=== PATIENT | female | born 1975 | race American Indian/Alaskan Native ===

== ENCOUNTER 2018-10-29 11:22 | Inpatient (IN) | payer MEDICAID ==
--- NOTE | 2018-10-29 11:36 | Emergency Department Report ---
Chief Complaint: Dyspnea/Respdistress Stated Complaint: HGB LOW Time Seen by Provider: 10/29/18 11:30 - HPI History of Present Illness: This is a 43 y.o. F that presents to ER with abnormal labs. Patient seen by PCP at [facility] 10/25/2018 and received a call yesterday of low H/H. PMH Asthma, HTN, anemia, and sickle cell. She reports generalized pain. - Exam Vital Signs: Vital Signs 10/29/18 11:30 Temperature 98 F Pulse Rate 88 Respiratory 20 Rate Blood Pressure 104/58 O2 Sat by Pulse 100 Oximetry MSE screening note: Focused history and physical exam performed. Due to findings the following was ordered: Labs and ekg Main ED for further evaluation. ED Disposition for MSE Condition: Stable
[2018-10-29 12:14] LABS: Mean Corpuscular HGB Conc 30 % (30-34)
[2018-10-29 12:26] LABS: Hematocrit 18.1 % (30.3-42.9); Hemoglobin 5.5 gm/dl (10.1-14.3); Mean Corpuscular Volume 62 fl (79-97); Platelet Count 1290 K/mm3 (140-440); Red Cell Distribution Width 34.4 % (13.2-15.2)
[2018-10-29 12:29] LABS: Alanine Aminotransferase 8 units/L (7-56); Albumin 3.9 g/dL (3.9-5); BUN/Creatinine Ratio 13; Blood Urea Nitrogen 5 mg/dL (7-17); Calcium 8.6 mg/dL (8.4-10.2); Hemolysis Index 4
[2018-10-29] MEDS ORDERED: NACL 0.9% 500 ML 500 ML IV ONE (12:40)
[2018-10-29] MEDS ORDERED: K-DUR PO ONE ×2 (12:42→14:46)
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
[2018-10-29 13:02] LABS: Anisocytosis 3+; Basophils % (Manual) 0 % (0.0-1.8); Hypochromasia 3+; Poikilocytosis 1+; Total Cells Counted 100
[2018-10-29 13:03] LABS: Macrocytosis 1+; Ovalocytes 1+; Platelet Estimate Appears Increased; Tear Drop Cells Few
[2018-10-29] MEDS ORDERED: NACL 0.9% 1000 ML 1,000 ML IV ONE (13:25)
[2018-10-29 13:54] LABS: HCG Qualitative,Urine Negative (Negative)
[2018-10-29 14:01] LABS: Bacteria,Urine 1+ /HPF (Negative); Bilirubin,Urine NEG (Negative); Blood,Urine NEG (Negative); Color,Urine Yellow (Yellow); Mucus,Urine FEW /HPF; Urobilinogen,Urine < 2.0 mg/dL (<2.0)
[2018-10-29 14:01] LABS: Amphetamine Screen,Urine PRESUMPTIVE NEGATIVE; Benzodiazepines Screen,Urine PRESUMPTIVE NEGATIVE; Cannabinoid Screen,Urine PRESUMPTIVE NEGATIVE; Cocaine Screen,Urine PRESUMPTIVE NEGATIVE; Methadone Screen,Urine PRESUMPTIVE NEGATIVE; Opiate Screen,Urine PRESUMPTIVE NEGATIVE
[2018-10-29] MEDS ORDERED: NORCO 5/325 PO ONE (14:01)
--- NOTE | 2018-10-29 14:01 | XRay Report ---
PROCEDURE: XR CHEST 1V AP TECHNIQUE: Chest radiograph single view. HISTORY: hypertension COMPARISONS: None . FINDINGS: Heart: Normal. Mediastinum/Vessels: Normal. Lungs/Pleural space: Normal. Bony thorax: No acute osseous abnormality. Life support devices: None. IMPRESSION: No acute cardiopulmonary abnormality. This document is electronically signed by Cherri Zeng MD., Oct 29 2018 01:59:32 PM ET
[2018-10-29] MEDS ORDERED: NORCO 5/325 ONE (14:05)
[2018-10-29 14:40] LABS: Iron 7 ug/dL (37-170); Total Iron Binding Capacity 377 mcg/dL (250-450)
[2018-10-29 14:44] LABS: Alanine Aminotransferase 8 units/L (7-56); Albumin 3.7 g/dL (3.9-5)
[2018-10-29 14:47] LABS: Bilirubin,Direct < 0.2 mg/dL (0-0.2)
[2018-10-29 15:11] LABS: INR 1.16 (0.87-1.13)
[2018-10-29 15:12] LABS: Partial Thromboplastin Time 26.7 Sec. (24.2-36.6)
[2018-10-29] MEDS ORDERED: NACL 0.9% 500 ML 500 ML ONE (16:29)
[2018-10-29] MEDS ORDERED: DILAUDID IV PRN (17:17)
[2018-10-29] MEDS ORDERED: BENADRYL IV ONE (20:27)
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
[2018-10-29] MEDS ORDERED: TYLENOL PO PRN (20:54)
[2018-10-29] MEDS ORDERED: ZOFRAN IV PRN (20:54)
[2018-10-29] MEDS ORDERED: SODIUM CHLORIDE FLUSH SYRINGE 10 ML IV PRN (20:54)
[2018-10-29] MEDS ORDERED: D5NS 1,000 ML IV SCH (21:00)
[2018-10-29] MEDS: PERCOCET 5/325 PO PRN (22:11)
[2018-10-29] MEDS: KCL 10MEQ/100ML 10 MEQ/100 ML BAG IV SCH (23:11)
[2018-10-30] MEDS: KCL 10MEQ/100ML 10 MEQ/100 ML BAG IV SCH ×3 (00:53→04:03)
[2018-10-30] MEDS: SODIUM CHLORIDE FLUSH SYRINGE 10 ML IV SCH ×2 (00:53→12:18)
[2018-10-30 01:58] LABS: Bacteria,Urine 1+ /HPF (Negative); Bilirubin,Urine NEG (Negative); Blood,Urine NEG (Negative); Color,Urine Yellow (Yellow); Mucus,Urine FEW /HPF; Protein,Urine <15 mg/dL mg/dL (Negative)
[2018-10-30] MEDS ORDERED: BENADRYL PO ONE (02:30)
[2018-10-30 11:32] LABS: Hematocrit 23.4 % (30.3-42.9); Hemoglobin 7.2 gm/dl (10.1-14.3); Mean Corpuscular HGB Conc 31 % (30-34); Red Blood Count 3.45 M/mm3 (3.65-5.03)
[2018-10-30 11:34] LABS: Mean Corpuscular Volume 68 fl (79-97); Red Cell Distribution Width 35.3 % (13.2-15.2)
[2018-10-30 11:36] LABS: Platelet Count 1179 K/mm3 (140-440)
[2018-10-30 11:57] LABS: Alanine Aminotransferase 7 units/L (7-56); Albumin 3.5 g/dL (3.9-5); BUN/Creatinine Ratio 17; Blood Urea Nitrogen 5 mg/dL (7-17); Calcium 8.4 mg/dL (8.4-10.2); Hemolysis Index 3
[2018-10-30] MEDS: PERCOCET 5/325 PO PRN (12:18)
[2018-10-30 12:44] VITALS: BP 123/77
[2018-10-30] MEDS ORDERED: ALUM-MAG HYDROX-SIMETH 200-200-20MG/5ML PO ONE (12:45)
[2018-10-30] MEDS ORDERED: ALUM-MAG HYDROX-SIMETH 200-200-20MG/5ML PO PRN (12:45)
--- NOTE | 2018-10-30 12:48 | Progress Note ---
Hospitalist Physical - Constitutional Vitals: Temp Pulse Resp BP Pulse Ox 98.3 F 86 18 123/77 100 10/30/18 12:42 10/30/18 12:42 10/30/18 12:42 10/30/18 12:42 10/30/18 12:42 General appearance: Present: no acute distress, well-nourished Results - Labs CBC & Chem 7: 10/30/18 11:19 10/30/18 11:19 Labs: Laboratory Last Values WBC 13.2 K/mm3 (4.5-11.0) H 10/30/18 11:19 RBC 3.45 M/mm3 (3.65-5.03) L 10/30/18 11:19 Hgb 7.2 gm/dl (10.1-14.3) L 10/30/18 11:19 Hct 23.4 % (30.3-42.9) L 10/30/18 11:19 MCV 68 fl (79-97) L 10/30/18 11:19 MCH 21 pg (28-32) L 10/30/18 11:19 MCHC 31 % (30-34) 10/30/18 11:19 RDW 35.3 % (13.2-15.2) H 10/30/18 11:19 Plt Count 1179 K/mm3 (140-440) H* 10/30/18 11:19 Add Manual Diff Complete 10/29/18 12:01 Total Counted 100 10/29/18 12:01 Seg Neuts % (Manual) 73.0 % (40.0-70.0) H 10/29/18 12:01 0 % 10/29/18 12:01 18.0 % (13.4-35.0) 10/29/18 12:01 Reactive Lymphs % (Man) 0 % 10/29/18 12:01 8.0 % (0.0-7.3) H 10/29/18 12:01 1.0 % (0.0-4.3) 10/29/18 12:01 0 % (0.0-1.8) 10/29/18 12:01 0 % 10/29/18 12:01 0 % 10/29/18 12:01 0 % 10/29/18 12:01 0 % 10/29/18 12:01 Nucleated RBC % Not Reportable 10/29/18 12:01 Seg Neutrophils # Man 8.8 K/mm3 (1.8-7.7) H 10/29/18 12:01 Band Neutrophils # 0.0 K/mm3 10/29/18 12:01 2.2 K/mm3 (1.2-5.4) 10/29/18 12:01 Abs React Lymphs (Man) 0.0 K/mm3 10/29/18 12:01 1.0 K/mm3 (0.0-0.8) H 10/29/18 12:01 0.1 K/mm3 (0.0-0.4) 10/29/18 12:01 0.0 K/mm3 (0.0-0.1) 10/29/18 12:01 0.0 K/mm3 10/29/18 12:01 0.0 K/mm3 10/29/18 12:01 0.0 K/mm3 10/29/18 12:01 Blast Cells # 0.0 K/mm3 10/29/18 12:01 WBC Morphology Not Reportable 10/29/18 12:01 WBC Morphology TNR 10/29/18 12:01 Hypersegmented Neuts Not Reportable 10/29/18 12:01 Hyposegmented Neuts Not Reportable 10/29/18 12:01 Hypogranular Neuts Not Reportable 10/29/18 12:01 Not Reportable 10/29/18 12:01 Not Reportable 10/29/18 12:01 Not Reportable 10/29/18 12:01 Not Reportable 10/29/18 12:01 Not Reportable 10/29/18 12:01 Not Reportable 10/29/18 12:01 Appears increased 10/29/18 12:01 Not Reportable 10/29/18 12:01 Plt Clumps, EDTA Not Reportable 10/29/18 12:01 Not Reportable 10/29/18 12:01 Not Reportable 10/29/18 12:01 Not Reportable 10/29/18 12:01 Plt Morphology Comment Not Reportable 10/29/18 12:01 RBC Morphology Not Reportable 10/29/18 12:01 Dimorphic RBCs Not Reportable 10/29/18 12:01 Not Reportable 10/29/18 12:01 3+ 10/29/18 12:01 1+ 10/29/18 12:01 3+ 10/29/18 12:01 2+ 10/29/18 12:01 1+ 10/29/18 12:01 Not Reportable 10/29/18 12:01 Not Reportable 10/29/18 12:01 Not Reportable 10/29/18 12:01 Not Reportable 10/29/18 12:01 Few 10/29/18 12:01 1+ 10/29/18 12:01 Not Reportable 10/29/18 12:01 Not Reportable 10/29/18 12:01 Not Reportable 10/29/18 12:01 Not Reportable 10/29/18 12:01 Not Reportable 10/29/18 12:01 Not Reportable 10/29/18 12:01 1+ 10/29/18 12:01 Acanthocytes (Spur) Not Reportable 10/29/18 12:01 Rouleaux Not Reportable 10/29/18 12:01 Not Reportable 10/29/18 12:01 Not Reportable 10/29/18 12:01 Not Reportable 10/29/18 12:01 Percent Retic 2.53 % (0.78-2.58) 10/29/18 12:01 Not Reportable 10/29/18 12:01 Hem Pathologist Commnt No 10/29/18 12:01 PT 15.5 Sec. (12.2-14.9) H 10/29/18 13:50 INR 1.16 (0.87-1.13) H 10/29/18 13:50 APTT 26.7 Sec. (24.2-36.6) 10/29/18 13:50 Sodium 141 mmol/L (137-145) 10/30/18 11:19 Potassium 3.7 mmol/L (3.6-5.0) D 10/30/18 11:19 Chloride 107.6 mmol/L (98-107) H 10/30/18 11:19 Carbon Dioxide 23 mmol/L (22-30) 10/30/18 11:19 14 mmol/L 10/30/18 11:19 BUN 5 mg/dL (7-17) L 10/30/18 11:19 0.3 mg/dL (0.7-1.2) L 10/30/18 11:19 Estimated GFR > 60 ml/min 10/30/18 11:19 17 % 10/30/18 11:19 Glucose 93 mg/dL (65-100) 10/30/18 11:19 5.2 % (4-6) 10/29/18 21:18 Calcium 8.4 mg/dL (8.4-10.2) 10/30/18 11:19 Magnesium 2.00 mg/dL (1.7-2.3) 10/29/18 13:50 Iron 7 ug/dL (37-170) L 10/29/18 13:50 TIBC 377 mcg/dL (250-450) 10/29/18 13:50 1.50 mg/dL (0.1-1.2) H 10/30/18 11:19 < 0.2 mg/dL (0-0.2) 10/29/18 13:50 AST 17 units/L (5-40) 10/30/18 11:19 ALT 7 units/L (7-56) 10/30/18 11:19 48 units/L (35-129) 10/30/18 11:19 < 0.010 ng/mL (0.00-0.029) 10/29/18 13:50 7.1 g/dL (6.3-8.2) 10/30/18 11:19 3.5 g/dL (3.9-5) L 10/30/18 11:19 1.0 % 10/30/18 11:19 Vitamin B12 380.3 pg/mL (211-911) 10/29/18 13:50 > 20 ng/mL (7.3-26.0) 10/29/18 13:50 Yellow (Yellow) 10/30/18 01:00 Cloudy (Clear) 10/30/18 01:00 6.0 (5.0-7.0) 10/30/18 01:00 Ur Specific [place] 1.011 (1.003-1.030) 10/30/18 01:00 <15 mg/dl mg/dL (Negative) 10/30/18 01:00 Neg mg/dL (Negative) 10/30/18 01:00 Neg mg/dL (Negative) 10/30/18 01:00 Neg (Negative) 10/30/18 01:00 Neg (Negative) 10/30/18 01:00 Ur Reducing Substances Not Reportable 10/29/18 12:13 Neg (Negative) 10/30/18 01:00 Not Reportable 10/29/18 12:13 4.0 mg/dL (<2.0) 10/30/18 01:00 Ur Leukocyte Esterase Mod (Negative) 10/30/18 01:00 9.0 /HPF (0.0-6.0) H 10/30/18 01:00 13.0 /HPF (0.0-6.0) 10/30/18 01:00 U Epithel Cells (Auto) 41.0 /HPF (0-13.0) H 10/30/18 01:00 1+ /HPF (Negative) 10/30/18 01:00 Few /HPF 10/30/18 01:00 Urine HCG, Qual Negative (Negative) 10/29/18 12:13 Salicylates < 0.3 mg/dL (2.8-20.0) L 10/29/18 13:50 Presumptive negative 10/29/18 12:38 Presumptive negative 10/29/18 12:38 Ur Barbiturates Screen Presumptive negative 10/29/18 12:38 Ur Phencyclidine Scrn Presumptive negative 10/29/18 12:38 Ur Amphetamines Screen Presumptive negative 10/29/18 12:38 U Benzodiazepines Scrn Presumptive negative 10/29/18 12:38 Presumptive negative 10/29/18 12:38 U Marijuana (THC) Screen Presumptive negative 10/29/18 12:38 Disclamer 10/29/18 12:38 Blood Type O POSITIVE 10/29/18 13:50 Antibody Screen TNR 10/29/18 13:50 BRAD Antibody Screen Negative 10/29/18 13:50 Crossmatch See Detail 10/29/18 13:50 Active Medications - Current Medications Current Medications: Generic Name Dose Route Start Last Admin Trade Name Freq PRN Reason Stop Dose Admin Acetaminophen 650 mg 10/29/18 20:54 Tylenol PO Q4H PRN Pain MILD(1-3)/Fever >100.5/SEGAL Al Hydrox/Mg Hydrox/Simethicone 30 ml 10/30/18 12:45 Alum-Mag Hydrox-Simeth 847-528-82wr/5ml PO Q4H PRN Indigestion Al Hydrox/Mg Hydrox/Simethicone 30 ml 10/30/18 12:45 Alum-Mag Hydrox-Simeth 246-342-77qw/5ml PO 10/30/18 12:46 ONCE ONE Hydromorphone HCl 1 mg 10/29/18 17:17 10/29/18 18:24 Dilaudid IV 1 mg Q3H PRN Administration Pain , Severe (7-10) Ondansetron HCl 4 mg 10/29/18 20:54 Zofran IV Q8H PRN Nausea And Vomiting Oxycodone/Acetaminophen 1 tab 10/29/18 20:55 10/30/18 12:18 Percocet 5/325 PO 1 tab Q6H PRN Administration Pain, Moderate (4-6) Sodium Chloride 10 ml 10/29/18 22:00 10/30/18 12:18 Sodium Chloride Flush Syringe 10 Ml IV 10 ml BID SUZANNE Administration Sodium Chloride 10 ml 10/29/18 20:54 Sodium Chloride Flush Syringe 10 Ml IV PRN PRN LINE FLUSH
[2018-10-30 14:30] LABS: Anisocytosis 3+; Hypochromasia 2+; Total Cells Counted 100
[2018-10-30 14:31] LABS: Ovalocytes Few; Poikilocytosis 1+; Tear Drop Cells Few
[2018-10-30 14:32] LABS: Platelet Estimate Consistent w Auto
--- NOTE | 2018-10-30 16:20 | Discharge Summary ---
Providers - Providers Date of Admission: 10/29/18 13:27 Date of discharge: 10/30/18 Attending physician: LILY OH 10/29/18 20:55 Consult to Physician [CONS] Routine Comment: Consulting Provider: WAI ROY Physician Instructions: Reason For Exam: thrombocytosis Primary care physician: LIVE BEST Hospitalization Reason for admission: generalized weakness, symptomatic anemia Condition: Stable Pertinent studies: chest x-ray; no acute abnormality noted; Hospital course: 43-year-old female patient with significant past medical history of sickle cell anemia and fibroids causing menorrhagia was admitted through emergency room with generalized weakness symptomatic anemia with hemoglobin of 5.5, patient also noted to have severe hypokalemia, admitted to the hospital received 2 units of PRBC with significant improvement of hemoglobin Patient's potassium was corrected to normal range, patient also has reactive thrombocytosis Mild improvement back to baseline,Evaluated by hematology oncologist, medications optimized, advise follow outpatient for further evaluation and management and cleared for discharge, Patient strongly advised to see private ARMORED CABLE MACHINE OPERATOR for further evaluation of her menorrhagia causing severe anemia Today patient is comfortable, no new complaints vital signs stable Physical examination is unremarkable, Hemodynamically and clinically stable at discharge Discharge diagnosis; --Symptomatic anemia; status post blood transfusion H&H significantly improved --Menorrhagia secondary to fibroid uterus; supportive care Advised to follow ARMORED CABLE MACHINE OPERATOR for further evaluation upon discharge --History of sickle cell anemia; symptomatic management, follow hematology --Reactive thrombocytosis; mild improvement, hematology evaluated the patient Outpatient workup upon discharge --Hypertension; moderate control, continue current antihypertensives The patient is hemodynamically and clinically stable for discharge Cleared by hematology oncologist for discharge and follow up in the office for scheduled Disposition: DC-01 TO HOME OR SELFCARE Time spent for discharge: 32 min Core Measure Documentation - Palliative Care Palliative Care/ Comfort Measures: Not Applicable - Core Measures Any of the following diagnoses?: none Exam - Constitutional Vitals: Temp Pulse Resp BP Pulse Ox 98.3 F 86 18 123/77 98 10/30/18 12:42 10/30/18 12:42 10/30/18 12:42 10/30/18 12:42 10/30/18 15:19 General appearance: Present: no acute distress, well-nourished - EENT Eyes: Present: PERRL, EOM intact - Neck Neck: Present: supple, normal ROM - Respiratory Respiratory effort: normal Respiratory: bilateral: diminished, negative: rales, rhonchi, wheezing - Cardiovascular Rhythm: regular Heart Sounds: Present: S1 & S2 - Extremities Extremities: no ischemia, No edema - Abdominal General gastrointestinal: Present: soft, non-tender, non-distended, normal bowel sounds - Integumentary Integumentary: Present: clear, warm - Musculoskeletal Musculoskeletal: strength equal bilaterally, generalized weakness - Psychiatric Psychiatric: appropriate mood/affect, cooperative - Neurologic Neurologic: CNII-XII intact, moves all extremities Plan Activity: advance as tolerated Diet: regular Additional Instructions: Advised to see private ARMORED CABLE MACHINE OPERATOR in 1 week for further evaln of menorrhagia. and anemia. Follow up with: LIVE BEST NP-C [Primary Care Provider] - 7 Days WAI ROY MD [Staff Physician] - 7 Days STEPHANIE DAY MD [Staff Physician] - 7 Days Prescriptions: Ferrous Sulfate [Feosol 325 MG tab] 325 mg PO BID #60 tablet
--- NOTE | 2018-10-30 18:03 | Event Note ---
Date: 10/30/18 [id number]
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
== END 2018-10-30 19:37 | disposition home or self-care (01) | DRG 761 ==
LOC: ED 11:22 → 4A 13:27
PROVIDERS: ADMIT Internal Medicine; ATTEND Internal Medicine
PROC: 30233N1 Transfusion of Nonautologous Red Blood Cells into Peripheral Vein, Percutaneous Approach (ICD-10-PCS; principal; 2018-10-29)
DX: D25.9 Leiomyoma of uterus, unspecified (principal); D47.3 Essential (hemorrhagic) thrombocythemia; D57.1 Sickle-cell disease without crisis; D50.9 Iron deficiency anemia, unspecified; N93.8 Other specified abnormal uterine and vaginal bleeding; E87.6 Hypokalemia; J45.909 Unspecified asthma, uncomplicated; Z88.8 Allergy status to other drugs, medicaments and biological substances; Z88.6 Allergy status to analgesic agent
CPT/HCPCS: 36415; 71045; 80053; 80076; 80307; 80320; 81001; 81025; 82607; 82747; 83036; 83550; 83735; 84484; 85007; 85025; 85045; 85610; 85660; 85730; 86850; 86900; 86901; 86920; 93005; 93010; G0378; G0480; J1170; J1200; J3480; J7030; J7040; J7042; P9016

== ENCOUNTER 2018-11-26 09:16 | Inpatient (IN) | payer MEDICAID ==
[2018-11-26 11:18] LABS: BUN/Creatinine Ratio 15; Blood Urea Nitrogen 6 mg/dL (7-17); Hemolysis Index 1
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
[2018-11-26 12:27] LABS: Hematocrit 22.9 % (30.3-42.9); Mean Corpuscular HGB Conc 30 % (30-34); Mean Corpuscular Volume 65 fl (79-97); Red Blood Count 3.51 M/mm3 (3.65-5.03); Red Cell Distribution Width 36.6 % (13.2-15.2)
[2018-11-26] MEDS ORDERED: K-DUR PO ONE ×2 (12:27→13:00)
[2018-11-26] MEDS ORDERED: NACL 0.9% 1000 ML 1,000 ML IV ONE (12:27)
[2018-11-26 12:28] LABS: Basophils # (Auto) 0.1 K/mm3 (0.0-0.1); Basophils % (Auto) 0.5 % (0.0-1.8); Eosinophils # (Auto) 0.2 K/mm3 (0.0-0.4); Eosinophils % (Auto) 1.4 % (0.0-4.3); Lymphocytes % (Auto) 36.4 % (13.4-35.0); Mean Platelet Volume 8.4 fl (6-12); Monocytes % (Auto) 8.8 % (0.0-7.3); Platelet Count 1524 K/mm3 (140-440)
[2018-11-26] MEDS ORDERED: PROTONIX IV ONE ×2 (12:29→13:00)
[2018-11-26] MEDS ORDERED: NACL 0.9% 1000 ML ONE (13:00)
[2018-11-26] MEDS ORDERED: NACL 0.9% 500 ML 500 ML IV ONE ×2 (13:03→16:21)
[2018-11-26 13:24] LABS: INR 1.1 (0.87-1.13)
[2018-11-26 13:25] LABS: Partial Thromboplastin Time 32.5 Sec. (24.2-36.6)
[2018-11-26 13:36] LABS: Alanine Aminotransferase 7 units/L (7-56); Albumin 4.1 g/dL (3.9-5)
[2018-11-26 14:01] LABS: Bilirubin,Direct < 0.2 mg/dL (0-0.2)
[2018-11-26] MEDS ORDERED: BENADRYL IV PRN (14:55)
[2018-11-26] MEDS: DILAUDID IV PRN ×3 (15:18→22:25)
[2018-11-26] MEDS: D5NS 0.2% 1,000 ML IV SCH (15:19)
--- NOTE | 2018-11-26 16:14 | History and Physical Report ---
History of Present Illness Date of examination: 11/26/18 Date of admission: 11/26/18 13:48 Chief complaint: SCD/pain crisis., generalized fatigue/weakness. History of present illness: Patient presented to the ER with CC of diffuse joint pain, labs revealed hgb of 7.0, PLT of 1.5million. She is admitted for sxs management, and control. She will be transfused, and hydrated, pain control, and w/up Thrombocytosis. Past History Past Medical History: No medical history Past Surgical History: No surgical history Social history: no significant social history, lives with family Family history: no significant family history Medications and Allergies Allergies Allergy/AdvReac Type Severity Reaction Status Date / Time ibuprofen [From Motrin] Allergy Rash Verified 05/01/18 22:16 steriods Allergy Unknown Uncoded 05/01/18 22:16 Home Medications Medication Instructions Recorded Confirmed Last Taken Type Gabapentin [Neurontin] 300 mg PO Q8HR #90 capsule 05/02/18 Unknown Rx HYDROcodone/APAP 5-325 [Kane 1 each PO Q6HR PRN #20 tablet 05/02/18 Unknown Rx 5-325 mg TAB] Ferrous Sulfate [Feosol 325 MG tab] 325 mg PO BID #60 tablet 10/30/18 Unknown Rx Active Meds: Active Medications Aspirin (Aspirin) 325 mg PO QDAY SUZANNE Diphenhydramine HCl (Benadryl) 25 mg IV Q6H PRN PRN Reason: Itching Last Admin: 11/26/18 15:18 Dose: 25 mg Documented by: Gabapentin (Neurontin) 300 mg PO Q8HR SUZANNE Hydromorphone HCl (Dilaudid) 2 mg IV Q3H PRN PRN Reason: Pain , Severe (7-10) Last Admin: 11/26/18 15:18 Dose: 2 mg Documented by: Dextrose/Sodium Chloride (D5ns 0.2%) 1,000 mls @ 175 mls/hr IV DIRECT SUZANNE Last Admin: 11/26/18 15:19 Dose: 175 mls/hr Documented by: Oxycodone/Acetaminophen (Percocet 5/325) 2 tab PO Q6H PRN PRN Reason: Pain, Moderate (4-6) Review of Systems Constitutional: fatigue, weakness, chronic pain Breasts: deferred Exam - Constitutional Vitals: Temp Pulse Resp BP Pulse Ox 98.1 F 89 18 128/80 100 11/26/18 09:19 11/26/18 09:19 11/26/18 12:30 11/26/18 09:19 11/26/18 09:19 General appearance: Present: mild distress, well-nourished - EENT Eyes: Present: PERRL ENT: hearing intact, clear oral mucosa - Neck Neck: Present: supple, normal ROM - Respiratory Respiratory effort: normal Respiratory: bilateral: CTA - Cardiovascular Heart Sounds: Present: S1 & S2. Absent: rub, click - Extremities Extremities: pulses symmetrical, No edema Peripheral Pulses: within normal limits - Abdominal General gastrointestinal: Present: soft, non-tender, non-distended, normal bowel sounds Female genitourinary: Present: deferred - Rectal Rectal Exam: deferred - Integumentary Integumentary: Present: clear, warm, dry - Musculoskeletal Musculoskeletal: gait normal, strength equal bilaterally - Psychiatric Psychiatric: appropriate mood/affect, intact judgment & insight - Neurologic Neurologic: CNII-XII intact, moves all extremities Results - Labs CBC & Chem 7: 11/26/18 10:34 11/26/18 10:34 Labs: Abnormal lab results 11/26/18 11/26/18 11/26/18 Range/Units 10:34 10:34 12:49 RBC 3.51 L (3.65-5.03) M/mm3 Hgb 7.0 L (10.1-14.3) gm/dl Hct 22.9 L (30.3-42.9) % MCV 65 L (79-97) fl MCH 20 L (28-32) pg RDW 36.6 H (13.2-15.2) % Plt Count 1524 H* (140-440) K/mm3 Lymph % (Auto) 36.4 H (13.4-35.0) % Curry % (Auto) 8.8 H (0.0-7.3) % Curry # 1.0 H (0.0-0.8) K/mm3 Potassium 3.2 L (3.6-5.0) mmol/L BUN 6 L (7-17) mg/dL Creatinine 0.4 L (0.7-1.2) mg/dL Total Bilirubin 1.30 H (0.1-1.2) mg/dL Total Protein 8.5 H (6.3-8.2) g/dL Crossmatch 11/26/18 Range/Units 12:49 RBC (3.65-5.03) M/mm3 Hgb (10.1-14.3) gm/dl Hct (30.3-42.9) % MCV (79-97) fl MCH (28-32) pg RDW (13.2-15.2) % Plt Count (140-440) K/mm3 Lymph % (Auto) (13.4-35.0) % Curry % (Auto) (0.0-7.3) % Curry # (0.0-0.8) K/mm3 Potassium (3.6-5.0) mmol/L BUN (7-17) mg/dL Creatinine (0.7-1.2) mg/dL Total Bilirubin (0.1-1.2) mg/dL Total Protein (6.3-8.2) g/dL Crossmatch See Detail Assessment and Plan - Patient Problems (1) Symptomatic anemia Current Visit: Yes Status: Acute Plan to address problem: replacement transfusion (2) Sickle cell anemia Current Visit: Yes Status: Chronic Qualifiers: Sickle-cell associated disorders: without crisis Qualified Code(s): D57.1 - Sickle-cell disease without crisis (3) Thrombocytosis Current Visit: Yes Status: Acute Plan to address problem: See w/up labs. (4) Dehydration Current Visit: Yes Status: Acute Plan to address problem: Hydration. (5) Sickle cell pain crisis Current Visit: Yes Status: Acute Plan to address problem: Pain control.
[2018-11-26 16:27] LABS: HCG Qualitative,Urine Negative (Negative)
[2018-11-26 16:32] LABS: Bacteria,Urine 1+ /HPF (Negative); Bilirubin,Urine NEG (Negative); Blood,Urine NEG (Negative); Color,Urine Straw (Yellow); Protein,Urine <15 mg/dL mg/dL (Negative); RBC,Urine < 1.0 /HPF (0.0-6.0); Urobilinogen,Urine < 2.0 mg/dL (<2.0)
--- NOTE | 2018-11-26 17:43 | XRay Report ---
PROCEDURE: XR CHEST 1V AP TECHNIQUE: Chest radiograph single view. HISTORY: FABRICIO COMPARISONS: 10/29/2018 . FINDINGS: Heart: Normal. Mediastinum/Vessels: Normal. Lungs/Pleural space: No infiltrate, effusion, or pneumothorax. Bony thorax: No acute osseous abnormality. Life support devices: None. IMPRESSION: No radiographic evidence of acute cardiopulmonary abnormality. This document is electronically signed by Kelli Whiting MD., November 26 2018 05:41:50 PM ET
[2018-11-26] MEDS: BENADRYL IV PRN ×2 (19:17→22:24)
[2018-11-26] MEDS: NEURONTIN PO SCH (22:32)
[2018-11-27] MEDS: PERCOCET 5/325 PO PRN ×3 (01:33→18:15)
[2018-11-27 05:24] LABS: Mean Corpuscular HGB Conc 31 % (30-34); Mean Corpuscular Volume 71 fl (79-97); Red Blood Count 3.66 M/mm3 (3.65-5.03)
[2018-11-27 05:26] LABS: Red Cell Distribution Width 37.5 % (13.2-15.2)
[2018-11-27 05:29] LABS: Platelet Count 1233 K/mm3 (140-440)
[2018-11-27 05:44] LABS: BUN/Creatinine Ratio 20; Blood Urea Nitrogen 6 mg/dL (7-17); Calcium 8.3 mg/dL (8.4-10.2); Hemolysis Index 0
[2018-11-27 05:46] LABS: Iron 21 ug/dL (37-170); Total Iron Binding Capacity 368 mcg/dL (250-450)
[2018-11-27 06:43] LABS: Total Cells Counted 100
[2018-11-27 06:45] LABS: Anisocytosis 2+; Hypochromasia 1+
[2018-11-27 06:46] LABS: Dimorphic RBC Yes
[2018-11-27] MEDS: BENADRYL IV PRN ×3 (08:59→23:13)
[2018-11-27] MEDS ORDERED: ZOFRAN IV SCH (09:00)
[2018-11-27] MEDS: D5NS 0.2% 1,000 ML IV SCH (09:10)
[2018-11-27] MEDS: ZOFRAN IV PRN ×2 (09:15→19:09)
[2018-11-27] MEDS: DILAUDID IV PRN ×3 (09:15→23:04)
[2018-11-27] MEDS: ASPIRIN PO SCH (12:55)
[2018-11-27] MEDS: HYDREA PO SCH (12:56)
[2018-11-27] MEDS: NEURONTIN PO SCH ×2 (15:12→23:08)
[2018-11-27] MEDS: LEVAQUIN PO SCH (15:28)
[2018-11-27] MEDS ORDERED: NACL 0.9% 500 ML IV SCH (15:36)
--- NOTE | 2018-11-27 20:35 | Progress Note ---
Assessment and Plan - Patient Problems (1) Symptomatic anemia Current Visit: Yes Status: Acute Plan to address problem: replacement transfusion completed. (2) Sickle cell anemia Current Visit: Yes Status: Chronic Qualifiers: Sickle-cell associated disorders: without crisis Qualified Code(s): D57.1 - Sickle-cell disease without crisis (3) Thrombocytosis Current Visit: Yes Status: Acute Plan to address problem: See w/up labs. See notes. (4) Dehydration Current Visit: Yes Status: Acute Plan to address problem: Hydration. (5) Sickle cell pain crisis Current Visit: Yes Status: Acute Plan to address problem: Pain control. Subjective Date of service: 11/27/18 Principal diagnosis: SCD/Pain crisis. Interval history: patient seen /examined, resting in bed, labs reviewed, PLT, slightly down to 1.2 million, from 1.5 mil.She is complaining of vaginal irritation, UA with +1 bacteria. she is also complaining of B/L knee pain.Will do bilateral knee xray.will give some oral Abx.Pain is rated at 7/10, with current pain management. Objective - Constitutional Vitals: Vital Signs - 12hr 11/27/18 11/27/18 11/27/18 11:20 15:25 16:17 Temperature 97.5 F L 98.4 F 98.4 F Pulse Rate 77 89 89 Respiratory 19 18 18 Rate Blood Pressure 134/77 130/85 130/85 O2 Sat by Pulse 98 97 97 Oximetry 11/27/18 11/27/18 11/27/18 16:32 17:02 17:32 Temperature 98.4 F 98.3 F 98.5 F Pulse Rate 79 75 79 Respiratory 16 16 20 Rate Blood Pressure 112/71 124/81 124/83 O2 Sat by Pulse 96 96 97 Oximetry 11/27/18 11/27/18 11/27/18 17:40 18:02 18:32 Temperature 98.5 F 98.3 F 98.5 F Pulse Rate 80 80 83 Respiratory 19 18 18 Rate Blood Pressure 124/83 127/77 133/46 O2 Sat by Pulse 100 80 L 98 Oximetry 11/27/18 19:00 Temperature 98.6 F Pulse Rate 80 Respiratory 18 Rate Blood Pressure 115/72 O2 Sat by Pulse 98 Oximetry General appearance: Present: mild distress - Breasts Breasts: deferred - Gastrointestinal Rectal Exam: deferred - Genitourinary Female genitourinary: deferred - Labs CBC & Chem 7: 11/27/18 04:50 11/27/18 04:50 Labs: Abnormal lab results 11/26/18 11/27/18 11/27/18 Range/Units 12:49 04:50 04:50 WBC (4.5-11.0) K/mm3 Hgb (10.1-14.3) gm/dl Hct (30.3-42.9) % MCV (79-97) fl MCH (28-32) pg RDW (13.2-15.2) % Plt Count (140-440) K/mm3 Monocytes % (Manual) (0.0-7.3) % Basophils % (Manual) (0.0-1.8) % Monocytes # (Manual) (0.0-0.8) K/mm3 BUN (7-17) mg/dL Creatinine (0.7-1.2) mg/dL Glucose (65-100) mg/dL Calcium (8.4-10.2) mg/dL Iron 21 L (37-170) ug/dL Ferritin 3.3 L (13.0-400.0) ng/mL Lactate Dehydrogenase (91-180) units/L Crossmatch See Detail 11/27/18 11/27/18 Range/Units 04:50 04:50 WBC 11.1 H (4.5-11.0) K/mm3 Hgb 8.0 L (10.1-14.3) gm/dl Hct 26.0 L (30.3-42.9) % MCV 71 L (79-97) fl MCH 22 L (28-32) pg RDW 37.5 H (13.2-15.2) % Plt Count 1233 H* (140-440) K/mm3 Monocytes % (Manual) 11.0 H (0.0-7.3) % Basophils % (Manual) 3.0 H (0.0-1.8) % Monocytes # (Manual) 1.2 H (0.0-0.8) K/mm3 BUN 6 L (7-17) mg/dL Creatinine 0.3 L (0.7-1.2) mg/dL Glucose 105 H (65-100) mg/dL Calcium 8.3 L (8.4-10.2) mg/dL Iron (37-170) ug/dL Ferritin (13.0-400.0) ng/mL Lactate Dehydrogenase 192 H (91-180) units/L Crossmatch Medications & Allergies - Medications Allergies/Adverse Reactions: Allergies ibuprofen [From Motrin] Allergy (Verified 05/01/18 22:16) Rash steriods Allergy (Uncoded 05/01/18 22:16) Unknown Home Medications: Home Medications Medication Instructions Recorded Confirmed Last Taken Type Folic Acid 5 mg PO BID 11/26/18 11/26/18 11/26/18 History Hydroxyurea 1 cap PO BID 11/26/18 11/26/18 11/25/18 History Percocet 10/325 mg 10 mg PO Q6H PRN 11/26/18 11/26/18 11/24/18 History Active Medications: Generic Name Dose Route Start Last Admin Trade Name Freq PRN Reason Stop Dose Admin Aspirin 325 mg 11/27/18 10:00 11/27/18 12:55 Aspirin PO 325 mg QDAY SUZANNE Administration Diphenhydramine HCl 25 mg 11/27/18 11:00 11/27/18 15:12 Benadryl IV 25 mg Q6H PRN Administration Itching Gabapentin 300 mg 11/26/18 22:00 11/27/18 15:12 Neurontin PO 300 mg Q8HR SUZANNE Administration Hydromorphone HCl 2 mg 11/26/18 14:53 11/27/18 15:12 Dilaudid IV 2 mg Q3H PRN Administration Pain , Severe (7-10) Hydroxyurea 1,000 mg 11/27/18 10:00 11/27/18 12:56 Hydrea PO 1,000 mg QDAY SUZANNE Administration Dextrose/Sodium Chloride 1,000 mls @ 250 mls/hr 11/26/18 15:00 11/27/18 09:10 D5ns 0.2% IV 175 mls/hr DIRECT SUZANNE Administration Levofloxacin 500 mg 11/27/18 15:00 11/27/18 15:28 Levaquin PO 500 mg Q24HR SUZANNE Administration Ondansetron HCl 4 mg 11/27/18 09:04 11/27/18 19:09 Zofran IV 4 mg Q8H PRN Administration Nausea Oxycodone/Acetaminophen 2 tab 11/26/18 15:56 11/27/18 18:15 Percocet 5/325 PO 2 tab Q6H PRN Administration Pain, Moderate (4-6) Sodium Chloride 500 ml 11/27/18 15:36 11/27/18 15:55 Nacl 0.9% 500 Ml IV 500 ml DIRECT SUZANNE Administration
[2018-11-28] MEDS: D5NS 0.2% 1,000 ML IV SCH ×3 (01:57→17:46)
[2018-11-28] MEDS: NEURONTIN PO SCH ×4 (05:12→22:05)
[2018-11-28] MEDS: BENADRYL IV PRN ×3 (05:12→21:51)
[2018-11-28] MEDS: DILAUDID IV PRN ×3 (05:14→21:50)
[2018-11-28] MEDS: HYDREA PO SCH (09:51)
[2018-11-28] MEDS: LEVAQUIN PO SCH (09:51)
[2018-11-28] MEDS: ASPIRIN PO SCH (09:51)
[2018-11-28] MEDS: PERCOCET 5/325 PO PRN ×2 (09:52→17:43)
[2018-11-28 10:06] LABS: Hematocrit 30.3 % (30.3-42.9); Hemoglobin 9.6 gm/dl (10.1-14.3); Mean Corpuscular HGB Conc 32 % (30-34); Mean Corpuscular Volume 73 fl (79-97); Red Blood Count 4.15 M/mm3 (3.65-5.03)
[2018-11-28 10:25] LABS: Red Cell Distribution Width 37.6 % (13.2-15.2)
[2018-11-28 10:26] LABS: Platelet Count 1070 K/mm3 (140-440)
[2018-11-28 10:52] LABS: BUN/Creatinine Ratio 18; Blood Urea Nitrogen 7 mg/dL (7-17); Calcium 8.8 mg/dL (8.4-10.2); Hemolysis Index 11
[2018-11-28 11:04] LABS: Anisocytosis 3+; Basophils % (Manual) 0 % (0.0-1.8); Dimorphic RBC Yes; Hypochromasia 1+; Total Cells Counted 100
[2018-11-28 11:05] LABS: Burr Cells Few; Platelet Estimate Consistent w Auto
[2018-11-28] MEDS: ZOFRAN IV PRN (11:27)
[2018-11-28] MEDS ORDERED: TYLENOL PO PRN (11:54)
--- NOTE | 2018-11-28 14:51 | Cat Scan Report ---
CT HEAD WITHOUT CONTRAST: HISTORY: Headache, dizziness. TECHNIQUE: Sequential 2.5mm CT images. COMPARISON: none. FINDINGS: Cerebral Parenchyma: Within normal limits. Cerebellum: Within normal limits. Brainstem: Within normal limits. Ventricles: Normal. Sella: Normal. Extra-axial spaces: Normal. Basal Cisterns: Normal. Intracranial Hemorrhage: None. Midline Shift: None. Calvarium: Normal. Sinuses: Normal. Mastoid Air Cells: Normal. Visualized Orbits: Normal. IMPRESSION: Cranial CT scan within normal limits.
[2018-11-28] MEDS: ROCEPHIN/NS 1 GM/50 ML 1 GM/50 ML BAG IV SCH (15:09)
--- NOTE | 2018-11-28 19:31 | Progress Note ---
Assessment and Plan - Patient Problems (1) Symptomatic anemia Current Visit: Yes Status: Acute Plan to address problem: replacement transfusion completed. post transfusion. (2) Sickle cell anemia Current Visit: Yes Status: Chronic Qualifiers: Sickle-cell associated disorders: without crisis Qualified Code(s): D57.1 - Sickle-cell disease without crisis (3) Thrombocytosis Current Visit: Yes Status: Acute Plan to address problem: See w/up labs. See notes. (4) Dehydration Current Visit: Yes Status: Acute Plan to address problem: Hydration. (5) Sickle cell pain crisis Current Visit: Yes Status: Acute Plan to address problem: Pain control. Subjective Date of service: 11/28/18 Principal diagnosis: SCD/Pain crisis. Interval history: patient seen /examined, resting in bed, labs reviewed, PLT, slightly down to 1.2 million, from 1.5 mil.She is complaining of vaginal irritation, UA with +1 bacteria. she is also complaining of B/L knee pain.Will do bilateral knee xray.will give some oral Abx.Pain is rated at 7/10, with current pain managemen t. Patient seen/examined, resting in bed, had some SEGAL earlier, CT of the brain done , awaiting results.She will continue IV abx, pain control, and if sxs , better tomorrow, will plan on D/C. Objective - Constitutional Vitals: Vital Signs - 12hr 11/28/18 11/28/18 11/28/18 09:54 11:37 12:53 Temperature 99.4 F 98.1 F Pulse Rate 90 81 85 Respiratory 18 19 Rate Blood Pressure 111/59 106/69 Blood Pressure 132/70 [Right] O2 Sat by Pulse 100 97 97 Oximetry 11/28/18 17:02 Temperature 98.2 F Pulse Rate 77 Respiratory 19 Rate Blood Pressure 143/82 Blood Pressure [Right] O2 Sat by Pulse 95 Oximetry General appearance: Present: mild distress, well-nourished - EENT Eyes: PERRL, EOM intact ENT: hearing intact, clear oral mucosa Ears: bilateral: normal - Neck Neck: supple, normal ROM - Respiratory Respiratory effort: normal Respiratory: bilateral: CTA - Breasts Breasts: deferred - Cardiovascular Rhythm: regular Heart Sounds: Present: S1 & S2. Absent: gallop, rub Extremities: pulses intact, No edema, normal color, Full ROM - Gastrointestinal General gastrointestinal: Present: soft, non-tender, non-distended, normal bowel sounds Rectal Exam: deferred - Genitourinary Female genitourinary: deferred - Integumentary Integumentary: clear, warm, dry - Musculoskeletal Musculoskeletal: 1, strength equal bilaterally - Neurologic Neurologic: moves all extremities - Psychiatric Psychiatric: memory intact, appropriate mood/affect, intact judgment & insight - Labs CBC & Chem 7: 11/28/18 09:24 11/28/18 09:24 Labs: Abnormal lab results 11/28/18 11/28/18 Range/Units 09:24 09:24 WBC 12.5 H (4.5-11.0) K/mm3 Hgb 9.6 L (10.1-14.3) gm/dl MCV 73 L (79-97) fl MCH 23 L (28-32) pg RDW 37.6 H (13.2-15.2) % Plt Count 1070 H* (140-440) K/mm3 Seg Neuts % (Manual) 81.0 H (40.0-70.0) % Lymphocytes % (Manual) 11.0 L (13.4-35.0) % Seg Neutrophils # Man 10.1 H (1.8-7.7) K/mm3 Eosinophils # (Manual) 0.5 H (0.0-0.4) K/mm3 Carbon Dioxide 18 L (22-30) mmol/L Creatinine 0.4 L (0.7-1.2) mg/dL Medications & Allergies - Medications Allergies/Adverse Reactions: Allergies ibuprofen [From Motrin] Allergy (Verified 05/01/18 22:16) Rash steriods Allergy (Uncoded 05/01/18 22:16) Unknown Home Medications: Home Medications Medication Instructions Recorded Confirmed Last Taken Type Folic Acid 5 mg PO BID 11/26/18 11/26/18 11/26/18 History Hydroxyurea 1 cap PO BID 11/26/18 11/26/18 11/25/18 History Percocet 10/325 mg 10 mg PO Q6H PRN 11/26/18 11/26/18 11/24/18 History Active Medications: Generic Name Dose Route Start Last Admin Trade Name Freq PRN Reason Stop Dose Admin Acetaminophen 650 mg 11/28/18 11:54 Tylenol PO Q6H PRN Pain, Mild (1-3) Aspirin 325 mg 11/27/18 10:00 11/28/18 09:51 Aspirin PO 325 mg QDAY SUZANNE Administration Diphenhydramine HCl 25 mg 11/27/18 11:00 11/28/18 15:10 Benadryl IV 25 mg Q6H PRN Administration Itching Gabapentin 300 mg 11/26/18 22:00 11/28/18 15:09 Neurontin PO 300 mg Q8HR SUZANNE Administration Hydromorphone HCl 2 mg 11/26/18 14:53 11/28/18 15:10 Dilaudid IV 2 mg Q3H PRN Administration Pain , Severe (7-10) Hydroxyurea 1,000 mg 11/27/18 10:00 11/28/18 09:51 Hydrea PO 1,000 mg QDAY SUZANNE Administration Dextrose/Sodium Chloride 1,000 mls @ 250 mls/hr 11/26/18 15:00 11/28/18 17:46 D5ns 0.2% IV 175 mls/hr DIRECT SUZANNE Administration Ceftriaxone Sodium 1 gm in 50 mls @ 100 mls/hr 11/28/18 14:00 11/28/18 15:09 Rocephin/Ns 1 Gm/50 Ml IV 100 mls/hr Q24HR SUZANNE Administration Protocol Levofloxacin 500 mg 11/27/18 15:00 11/28/18 09:51 Levaquin PO 500 mg Q24HR SUZANNE Administration Ondansetron HCl 4 mg 11/27/18 09:04 11/28/18 11:27 Zofran IV 4 mg Q8H PRN Administration Nausea Oxycodone/Acetaminophen 2 tab 11/26/18 15:56 11/28/18 17:43 Percocet 5/325 PO 2 tab Q6H PRN Administration Pain, Moderate (4-6) Sodium Chloride 500 ml 11/27/18 15:36 11/27/18 15:55 Nacl 0.9% 500 Ml IV 500 ml DIRECT SUZANNE Administration
--- NOTE | 2018-11-28 21:42 | XRay Report ---
PROCEDURE: XR KNEE BILAT 1-2V TECHNIQUE: Bilateral knees 4 views HISTORY: Pain COMPARISONS: FINDINGS: Joint spaces are within normal limits. No acute fracture identified. No dislocation seen. Toe demonst rates normal positioning. No evidence for joint effusion. IMPRESSION: Negative bilateral knee series. This document is electronically signed by Jose Hyman MD., November 28 2018 09:40:07 PM ET
[2018-11-29] MEDS: PERCOCET 5/325 PO PRN ×3 (00:39→18:00)
[2018-11-29] MEDS: DILAUDID IV PRN ×6 (03:01→20:36)
[2018-11-29] MEDS: D5NS 0.2% 1,000 ML IV SCH ×4 (03:02→16:22)
[2018-11-29] MEDS: BENADRYL IV PRN ×4 (04:49→18:01)
[2018-11-29] MEDS: NEURONTIN PO SCH ×3 (06:09→22:16)
[2018-11-29] MEDS: ZOFRAN IV PRN ×2 (07:50→17:21)
[2018-11-29] MEDS: ROCEPHIN/NS 1 GM/50 ML 1 GM/50 ML BAG IV SCH (09:47)
[2018-11-29] MEDS: ASPIRIN PO SCH (09:50)
[2018-11-29] MEDS: HYDREA PO SCH (09:52)
[2018-11-29 13:45] VITALS: BP 101/62
--- NOTE | 2018-11-29 21:50 | Discharge Summary ---
Providers - Providers Date of Admission: 11/26/18 13:48 Date of discharge: 11/29/18 Attending physician: OSCAR DORSEY [facility] Reason for admission: SCD/pain crisis Condition: Stable Hospital course: Patient presented to the ER ,with CC of diffuse joint pain, she was admitted for sxs management, and control. she had blood replacement, and did fairly well ,henceforth. She complained, of vaginal irritation, and was treated , she also complained of intractible SEGAL, Ct of the brain, and b/l knee xry were both NL. patient is seen, resting in bed, labs, reviewed, plt had dropped down from 1.5mil to about 1mil, on hydrea. She is insisting on going home. NAD .SEGAL has subsided , as per patient. She is instructed to see me in the office in 2-5 days, or go to the ER if any other problems. She will continue on hydrea, and low dose ASA. Disposition: TO HOME OR SELFCARE - Discharge Diagnoses (1) Symptomatic anemia Status: Resolved (2) Sickle cell anemia Status: Resolved Qualifiers: Sickle-cell associated disorders: without crisis Qualified Code(s): D57.1 - Sickle-cell disease without crisis (3) Thrombocytosis Status: Acute (4) Dehydration Status: Resolved (5) Sickle cell pain crisis Status: Resolved Core Measure Documentation - Palliative Care Palliative Care/ Comfort Measures: Not Applicable - Core Measures Any of the following diagnoses?: none Exam - Constitutional Vitals: Temp Pulse Resp BP Pulse Ox 98.5 F 70 20 101/62 97 11/29/18 11:24 11/29/18 11:24 11/29/18 11:24 11/29/18 11:24 11/29/18 11:24 General appearance: Present: no acute distress, well-nourished - EENT Eyes: Present: PERRL ENT: hearing intact, clear oral mucosa - Neck Neck: Present: supple, normal ROM - Respiratory Respiratory effort: normal Respiratory: bilateral: CTA - Cardiovascular Heart Sounds: Present: S1 & S2. Absent: rub, click - Extremities Extremities: pulses symmetrical, No edema Peripheral Pulses: within normal limits - Abdominal General gastrointestinal: Present: soft, non-tender, non-distended, normal bowel sounds Female genitourinary: Present: deferred - Rectal Rectal Exam: deferred - Integumentary Integumentary: Present: clear, warm, dry - Musculoskeletal Musculoskeletal: gait normal, strength equal bilaterally - Psychiatric Psychiatric: appropriate mood/affect, intact judgment & insight - Neurologic Neurologic: CNII-XII intact, moves all extremities Plan Activity: no restrictions Diet: regular Follow up with: HERSON MILLER MD [Primary Care Provider] - 3-5 Days OSCAR DORSEY DO [Staff Physician] - 3 Days
== END 2018-11-29 22:39 | disposition home or self-care (01) | DRG 812 ==
LOC: ED 09:16 → 3A 13:48
PROVIDERS: ADMIT Internal Medicine Hematology & Oncology; ATTEND Internal Medicine Hematology & Oncology
PROC: 30233N1 Transfusion of Nonautologous Red Blood Cells into Peripheral Vein, Percutaneous Approach (ICD-10-PCS; principal; 2018-11-26)
DX: D57.00 Hb-SS disease with crisis, unspecified (principal); D47.3 Essential (hemorrhagic) thrombocythemia; E87.6 Hypokalemia; E86.0 Dehydration; Z88.6 Allergy status to analgesic agent
CPT/HCPCS: 36415; 36430; 70450; 71045; 80048; 80076; 81001; 81025; 82728; 83550; 83615; 83735; 83880; 85007; 85025; 85045; 85610; 85660; 85730; 86850; 86900; 86901; 86920; 87086; 88184; 88185; 93005; 93010; G0378; C9113; J0696; J1170; J1200; J2405; J7030; J7040; P9016

== ENCOUNTER 2020-03-22 21:18 | Emergency (ER) | payer MEDICAID ==
[2020-03-22 21:46] LABS: Basophils # (Auto) 0.1 K/mm3 (0.0-0.1); Basophils % (Auto) 0.9 % (0.0-1.8); Eosinophils # (Auto) 0.2 K/mm3 (0.0-0.4); Eosinophils % (Auto) 2.2 % (0.0-4.3); Hematocrit 38.2 % (30.3-42.9); Hemoglobin 12.5 gm/dl (10.1-14.3); Lymphocytes # (Auto) 3.4 K/mm3 (1.2-5.4); Lymphocytes % (Auto) 37.1 % (13.4-35.0); Mean Corpuscular HGB Conc 33 % (30-34); Mean Corpuscular Volume 85 fl (79-97); Monocytes # (Auto) 1.2 K/mm3 (0.0-0.8); Monocytes % (Auto) 12.9 % (0.0-7.3); Platelet Count 358 K/mm3 (140-440); Red Blood Count 4.48 M/mm3 (3.65-5.03)
[2020-03-22 21:59] LABS: Blood Urea Nitrogen 10 mg/dL (7-17); Calcium 9.4 mg/dL (8.4-10.2); Hemolysis Index 26
[2020-03-22 22:03] LABS: BUN/Creatinine Ratio 25
--- NOTE | 2020-03-22 22:39 | XRay Report ---
CHEST 1 VIEW INDICATION / CLINICAL INFORMATION: Chest Pain. COMPARISON: 11/26/2018 FINDINGS: SUPPORT DEVICES: Port-A-Cath catheter has been placed on the right since the prior study. The tip pro jects the level the superior vena cava. HEART / MEDIASTINUM: No significant abnormality. LUNGS / PLEURA: No significant pulmonary or pleural abnormality.. No pneumothorax. ADDITIONAL FINDINGS: No significant additional findings. IMPRESSION: 1. No acute findings. Signer Name: Earnest Wong MD Signed: 03/22/2020 10:34 PM Workstation Name: [id number]
[2020-03-23] MEDS ORDERED: BACLOFEN 10 MG TAB PO ONE (00:04)
[2020-03-23] MEDS ORDERED: oxyCODONE /ACETAMINOPHEN 5-325MG TAB PO ONE (00:04)
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
[2020-03-23 01:29] VITALS: BP 132/78
== END 2020-03-23 01:45 | disposition home or self-care (01) ==
LOC: ED 21:18
DX: D57.1 Sickle-cell disease without crisis (principal); R07.89 Other chest pain; M62.830 Muscle spasm of back; I10 Essential (primary) hypertension; J45.909 Unspecified asthma, uncomplicated; Z98.890 Other specified postprocedural states; Z79.899 Other long term (current) drug therapy; Z88.8 Allergy status to other drugs, medicaments and biological substances
CPT/HCPCS: 36415; 71045; 80048; 84484; 85025; 93005

== ENCOUNTER 2021-01-04 04:37 | Emergency (ER) | payer SELFPAY ==
[2021-01-04 04:45] VITALS: BP 137/111
[2021-01-04 05:29] LABS: Basophils # (Auto) 0.1 K/mm3 (0.0-0.1); Basophils % (Auto) 0.9 % (0.0-1.8); Eosinophils # (Auto) 0.1 K/mm3 (0.0-0.4); Eosinophils % (Auto) 1.8 % (0.0-4.3); Hematocrit 42.5 % (30.3-42.9); Hemoglobin 14.6 gm/dl (10.1-14.3); Lymphocytes # (Auto) 3.4 K/mm3 (1.2-5.4); Lymphocytes % (Auto) 42.4 % (13.4-35.0); Mean Corpuscular HGB Conc 34 % (30-34); Mean Corpuscular Volume 87 fl (79-97); Platelet Count 396 K/mm3 (140-440); Red Blood Count 4.88 M/mm3 (3.65-5.03); Red Cell Distribution Width 15.7 % (13.2-15.2)
[2021-01-04 05:39] LABS: Alanine Aminotransferase 11 units/L (7-56); Albumin 4.5 g/dL (3.9-5); Blood Urea Nitrogen 10 mg/dL (7-17); Hemolysis Index 3
[2021-01-04 05:51] LABS: BUN/Creatinine Ratio 33
[2021-01-04 06:13] LABS: Erythrocyte Sedimentation Rate 12 mm/Hr (0-20)
== END 2021-01-04 05:00 | disposition left against medical advice (07) ==
LOC: ED 04:37
DX: R52 Pain, unspecified (principal); Z53.21 Procedure and treatment not carried out due to patient leaving prior to being seen by health care provider
CPT/HCPCS: 36415; 80053; 84484; 85025; 85045; 85652